=== PATIENT | male | born 1980 | race Caucasian/White ===

== ENCOUNTER 2023-05-19 18:39 | Emergency (ER) | payer MEDICAID, SELFPAY ==
[2023-05-19] VITALS (13 sets, daily range): BP systolic 129–148; BP diastolic 75–91; PULSE 70–82; RESP 14–17; TEMP 36.6–36.8; O2SAT 96–98
--- NOTE | ~2023-05-19 | CT_ITS ---
EXAMINATION: CT abdomen pelvis w con DATE: 05/19/2023 19:46 INDICATION: Abdominal pain with distention TECHNIQUE: Computed tomography (CT) of the abdomen and pelvis was performed with 100 mL Omnipaque-350 intravenous contrast. Automated exposure control and iterative reconstruction technique were employe d. The dose-length product was 1226.14 mGy-cm. COMPARISON: None FINDINGS: Mild discoid atelectasis at the lingula. Heart size is normal. Minimal amount of atherosclerotic epifanio nary artery calcification. No pericardial or pleural effusion. Liver, decompressed gallbladder, splee n, pancreas, bilateral adrenal glands and kidneys are normal. Bowels including the appendix are caryn l. Bladder is normal. No free intraperitoneal gas or fluid. No pathologically enlarged abdominal or p elvic lymphadenopathy. Mild scattered degenerative skeletal changes in the spine and pelvis. IMPRESSION: 1. No acute intra-abdominal/pelvic process. Reviewed, dictated and finalized at location A. OGRAPHIC DOUBLE
--- NOTE | 2023-05-19 18:43 | ECG_ITS ---
Measurements Intervals [place] Rate: 70 P: 42 [place]: 142 QRS: 71 QRSD: 90 T: 39 QT: 390 QTc: 421 Interpretive Statements SINUS RHYTHM BASELINE WANDER- I, III, AVR, AVL, AVF NORMAL ECG NO PREVIOUS ECG AVAILABLE FOR COMPARISON Electronically Signed On 05-19-2023 20:02:34 [employer] OFFICER by Geronimo Anaya D.O.
[2023-05-19 18:57] LABS: Basophils Absolute Auto 0.06 K/mm3 (0.00-0.10); Basophils Percent Auto 0.8 % (0.0-1.0); Eosinophils Absolute Auto 0.33 K/mm3 (0.02-0.50); Eosinophils Percent Auto 4.2 % (1.0-6.0); Hematocrit 42.7 % (40.0-54.0); Hemoglobin 14.4 g/dL (14.0-18.0); Immature Granulocyte Absolute 0.01 K/mm3 (0.00-0.00); Immature Granulocyte Percent A 0.1 % (0.0-0.0); Lymphocytes Absolute Auto 2.64 K/mm3 (1.10-4.50); Lymphocytes Percent Auto 33.6 % (18.0-42.0); Mean Corpuscular HGB Conc 33.7 g/dL (32.0-36.0); Mean Corpuscular Hemoglobin 32.7 pg (27.0-31.0); Mean Platelet Volume 10.2 fl (8.7-11.0); Monocytes Absolute Auto 0.44 K/mm3 (0.10-0.90); Monocytes Percent Auto 5.6 % (2.0-11.0); Neutrophils Absolute Auto 4.4 K/mm3 (1.7-7.2); Neutrophils Percent Auto 55.7 % (50.0-70.0); Platelet Count Result 214 K/mm3 (150-420); Red Cell Distribution Width 12.5 % (11.6-14.4); White Blood Count 7.9 K/mm3 (4.8-10.8)
[2023-05-19] MEDS: SODIUM CHLORIDE 0.9% IV 1,000 ML 999 ML IV CONT (19:00)
--- NOTE | 2023-05-19 19:10 | PC.NURSE ---
BSSR received from FARA Lopez. Patient awake and alert at time of handoff, ivf infusing without difficulty. update provided. patient visitor given warm blanket per request.patient denies current needs.
[2023-05-19 19:13] LABS: Partial Thromboplastin Time 24.8 SEC (23.90-30.70); Prothrombin Time 10.7 Seconds (9.50-12.10)
[2023-05-19 19:21] LABS: Lactic Acid Reflex 1.3 mmol/L (0.4-2.0)
[2023-05-19 19:27] LABS: Alanine Aminotransferase 22 U/L (16-63); Albumin Level 3.9 g/dL (3.4-5.0); Alkaline Phosphatase 82 U/L (46-116); Anion Gap 8 mmol/L (8-16); Aspartate Amino Transferase 13 U/L (15-37); Bilirubin,Total 0.2 mg/dL (0.00-1.00); Blood Urea Nitrogen 12 mg/dL (7-18); Calcium 8.4 mg/dL (8.5-10.1); Carbon Dioxide 29 mmol/L (21-32); Chloride 105 mmol/L (98-108); Estimated Glomerular Filt Rate > 60; Glucose 105 mg/dL (70-99); Lipase 79 U/L (16-77); NT Pro B Type Natriuretic Pept 23 pg/mL (0-125); Osmolality Calculated 293 mOsm/kg (285-295); Potassium 3.8 mmol/L (3.5-5.1); Sodium 142 mmol/L (136-145)
[2023-05-19 19:28] LABS: CRP < 0.5 mg/dL (0.0-0.9); Troponin I < 4.0 ng/L (0.00-60.4)
[2023-05-19 20:22] LABS: Appearance Urine Clear (Clear); Bilirubin Urine Negative (Negative); Blood Urine Trace-Intact (Negative); Color Urine Light Yellow (Yellow); Glucose Urine UA Negative (Negative); Ketones Urine Negative (Negative); Leukocyte Esterase Ur Negative LEU/UL (Negative); Nitrate Urine Negative (Negative); Protein Urine Negative (Negative); Urobilinogen Urine 0.2 mg/dL (0.2-1.0); pH Urine 6.5 (5.0-8.0)
[2023-05-19 20:29] LABS: Add Urine Microscopic? YES; Bacteria Urine None seen /hpf; Squamous Epithelial Cell Urine None seen /hpf (Few); WBC Urine 0-3 /hpf (0-3)
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
== END 2023-05-19 21:10 | disposition home or self-care (01) ==
PROVIDERS: Emergency Provider Emergency Medicine
DX: K52.9 Noninfective gastroenteritis and colitis, unspecified (principal)
CPT/HCPCS: 36415; 74177; 80053; 81001; 83605; 83690; 83880; 84484; 85025; 85610; 85730; 86140; 93005; 96360; 99284; J7030; Q9967

== ENCOUNTER 2023-07-12 16:08 | Emergency (ER) | payer BC, SELFPAY ==
--- NOTE | ~2023-07-12 | CT_ITS ---
EXAMINATION: CT brain wo con DATE: 07/12/2023 17:13 INDICATION: Weakness. Neck pain. TECHNIQUE: Computed tomography (CT) of the head was performed without intravenous contrast. The mA wa s adjusted according to patient size. Iterative reconstruction technique was employed. The dose-lengt h product was 681.00 mGy-cm. COMPARISON: None FINDINGS: There is no intracranial hemorrhage, acute infarction, or abnormal intracranial mass lesion . The ventricles are normal in size. There is mucosal thickening in the paranasal sinuses. The orbits are normal. The mastoid air cells are normal. IMPRESSION: 1. Normal brain. Reviewed, dictated and finalized at location E. NER CCO IMPRESSION: 1. Normal brain.
--- NOTE | ~2023-07-12 | CT_ITS ---
EXAMINATION: CT cervical spine wo con DATE: 07/12/2023 17:14 INDICATION: Neck pain. TECHNIQUE: Computed tomography (CT) of the cervical spine was performed without intravenous contrast. Automated exposure control and iterative reconstruction technique were employed. The dose-length pro duct was 590.84 mGy-cm. COMPARISON: None FINDINGS: There is 4 degrees dextrocurvature of cervical spine. There is mild chronic anterior wedgin g of T2 vertebral body. Intervertebral disc heights are normal. There is multilevel mild facet joint osteoarthritis. There is multilevel mild uncovertebral joint osteoarthritis. On the right, there is m ild neural foraminal stenosis at C3-C4. On the left, there is mild neural foraminal stenosis at C5-C6 . There is mild central canal stenosis at C3-C4. IMPRESSION: 1. No fracture. 2. Mild cervical spondylosis. Reviewed, dictated and finalized at location E. ING HELPER
[2023-07-12 16:10] VITALS: BP 147/80; PULSE 80; RESP 18; TEMP 36.8; O2SAT 97
--- NOTE | 2023-07-12 16:33 | ED.GENADULT ---
HPI - General Adult General Chief complaint: Back Pain/Injury Stated complaint: BACK PAIN, NUMBNESS Time Seen by Provider: 07/12/23 16:17 History of Present Illness HPI narrative: 42yo man with history of years of chronic back pain, no operative interventions or implants, presents with one month of intermittent loss of voluntary muscle control when bending at the waist, causing him to fall over. Patient states he is afraid to bend over to tie his shoes in the past two weeks because this can cause both his arms and his legs to completely stop working, become paralyzed, and he falls over. Asked if he has seen a doctor for this he states he called his physician who ordered him x-rays which he had done at [facility] today, and then waited in their ED and became frustrated with the wait time so came here instead. Feels that, at rest, the pain in his neck is worse than usual and is frequently popping. No saddle anesthesia or stool incontinence but does struggle to start a urine stream and has to push hard to maintain it, which he says is progressively worsening over time. While at rest, no numbness or weakness. Only when flexing the spine forward. Related Data Home Medications Medication Instructions Recorded Confirmed hydrocodone 5 mg-acetaminophen 325 1 tablet PO BID PRN Pain 07/12/23 07/12/23 mg tablet Allergies Allergy/AdvReac Type Severity Reaction Status Date / Time haloperidol [From Haldol] Allergy Anaphylaxis Verified 07/12/23 16:14 Review of Systems Review of Systems: All systems reviewed & are unremarkable except as noted in HPI and below Constitutional: Constitutional: Denies fever(s) Eyes: Eyes: Denies change in vision and Denies photophobia ENT: Denies dysphagia Cardiovascular: Cardiovascular: Denies chest pain Respiratory: Respiratory: Denies dyspnea Gastrointestinal: Gastrointestinal: Denies abdominal pain Musculoskeletal: Musculoskeletal: Reports back pain and Reports arthralgias Neurologic: Denies dizziness, Reports focal weakness, Reports numbness and Reports weakness PMFSH Past Medical History Medical History Patient denies medical problems Exam Const: General: healthy appearing and no acute distress Nutritional Appearance: well nourished HENMT: Head: normal to inspection, no contusions and no hematomas Eyes: Conjunctivae: conjunctivae normal Pupils: Equal, round and reactive pupils present EOM: EOMs intact bilaterally Direct Ophthalmoscopy: no photophobia Resp: Effort & Inspection: normal respiratory effort Cardio: Rate: regular rate GI: Inspection: non-distended Back/Spine/Pelvis: Other: no midline spinal tenderness Skin: General skin exam: normal color, no jaundice and no pallor Neuro: General: patient oriented x3, moves all extremities and no focal motor deficits Other: intact strength and coordination of both arms Extrem: General: no clubbing, cyanosis or edema Course Vital Signs Vital signs: Vital Signs Temperature 36.8 C 07/12/23 16:10 Pulse Rate 80 07/12/23 16:10 Respiratory Rate 18 07/12/23 16:10 Blood Pressure 147/80 H 07/12/23 16:10 Pulse Oximetry 97 07/12/23 16:10 Oxygen Delivery Room Air 07/12/23 16:10 Temperature 36.8 C 07/12/23 16:10 Pulse Rate 80 07/12/23 16:10 Respiratory Rate 18 07/12/23 16:10 Blood Pressure 147/80 H 07/12/23 16:10 Pulse Oximetry 97 07/12/23 16:10 Oxygen Delivery Room Air 07/12/23 16:10 Medical Decision Making MDM Narrative Medical decision making narrative: acute on chronic neck and back pain with position-dependent loss of skeletal muscle control and progressive urinary difficulty DDx central canal stenosis, disc herniation with cervical radiculopathy, cauda equina, neuroforaminal stenosis. Patient states these symptoms are new and progressing. Needs emergent spine evaluation with MRI o
[2023-07-12] MEDS: ACETAMINOPHEN 500 MG TABLET 1000 MG PO (16:36)
[2023-07-12] MEDS: KETOROLAC (*BKC) 60 MG/2 ML VIAL IM (16:37)
[2023-07-12 17:15] VITALS: BP 141/60; PULSE 69; RESP 14; O2SAT 99
== END 2023-07-12 17:55 | disposition home or self-care (01) ==
PROVIDERS: Emergency Provider Emergency Medicine; PCP Physician Assistant
DX: M54.12 Radiculopathy, cervical region (principal); R39.11 Hesitancy of micturition; M62.81 Muscle weakness (generalized); Z79.891 Long term (current) use of opiate analgesic; W19.XXXA Unspecified fall, initial encounter
CPT/HCPCS: 70450; 72125; 96372; 99284; J1885

== ENCOUNTER 2024-04-19 14:29 | Emergency (ER) | payer BC, SELFPAY ==
--- NOTE | ~2024-04-19 | CT_ITS ---
EXAMINATION: CT abdomen pelvis wo con DATE: 04/19/2024 14:55 INDICATION: Abdominal pain. Flank pain. TECHNIQUE: Computed tomography (CT) of the abdomen and pelvis was performed without intravenous contr ast. Automated exposure control and iterative reconstruction technique were employed. The dose-length product was 1011.58 mGy-cm. COMPARISON: CT abdomen and pelvis 05/19/2023 FINDINGS: The visualized portions of the lung bases demonstrate minimal atelectasis on the left. No p leural effusion. The heart size is normal. No pericardial effusion. The liver, gallbladder, spleen, p ancreas, adrenal glands, and left kidney are normal. There is a 1 mm stone in right kidney. There are no dilated loops of bowel. The appendix is normal. There are no pathologically enlarged lymph nodes. There is no free intraperitoneal fluid. There is mild thoracic and lumbar spondylosis. There is a be nign bone island in L1 vertebral body. IMPRESSION: 1. No specific etiology for the patient's symptoms. Reviewed, dictated and finalized at location B.
[2024-04-19 14:31] VITALS: BP 103/63; PULSE 63; RESP 14; TEMP 36.6; O2SAT 99
[2024-04-19] MEDS: KETOROLAC (*BKC) 60 MG/2 ML VIAL IM (14:54)
--- NOTE | 2024-04-19 14:54 | PC.NURSE ---
patient back in room from CT
--- NOTE | 2024-04-19 15:02 | ED.BACK ---
HPI - Back Pain/Injury General Chief Complaint: Back Pain/Injury Stated Complaint: lower back pain Time Seen by Provider: 04/19/24 14:37 Source: patient and family Mode of arrival: ambulatory Limitations: no limitations History of Present Illness HPI Narrative: this is a 43-year-old male that has chronic back pain and follows with Pain Management refused have any kind of injection through Pain Management. Presents with increasing low back pain with no injuries there is no radiation of his pain no saddle paresthesias no fever chills, patient also complaining of right flank and abdominal pain that started 2 to 3 days ago with no nausea vomiting no diarrhea constipation. MD elicited complaint: back pain Pertinent past history: prior back pain Onset (ago): day(s) Timing: constant Severity: severe Pain scale (0-10): 10 Quality: dull and aching Location: lumbar spine Related Data Home Medications Medication Instructions Recorded Confirmed No Home Medications 04/19/24 04/19/24 Allergies Allergy/AdvReac Type Severity Reaction Status Date / Time haloperidol [From Haldol] Allergy Anaphylaxis Verified 04/19/24 14:34 Review of Systems Review of Systems: All systems reviewed & are unremarkable except as noted in HPI and below PMFSH Past Medical History Medical History Chronic back pain Patient denies medical problems Exam Const: General: no acute distress Nutritional Appearance: well nourished Limitations: no limitations Cardio: Rate: regular rate Rhythm: regular rhythm GI: GI Palp: Yes Soft to palpation and Yes Tenderness to palpation present (GI) : General: Yes bladder normal to palpation Urinary Catheter: Urinary Catheter: patent and draining Back/Spine/Pelvis: Back: CVA tenderness Skin: General skin exam: normal color Rashes: no rashes Neuro: General: patient oriented x3, moves all extremities, no meningeal signs and no focal motor deficits Extrem: General: normal to inspection and no clubbing, cyanosis or edema Course Course Emergency Course: patient received a shot of Toradol 60mg IM and CT scan performed and reviewed. Vital Signs Vital signs: Vital Signs Temperature 36.6 C 04/19/24 14:31 Pulse Rate 63 04/19/24 14:31 Respiratory Rate 14 04/19/24 14:31 Blood Pressure 103/63 04/19/24 14:31 Pulse Oximetry 99 04/19/24 14:31 Oxygen Delivery Room Air 04/19/24 14:31 Temperature 36.6 C 04/19/24 14:31 Pulse Rate 63 04/19/24 14:31 Respiratory Rate 14 04/19/24 14:31 Blood Pressure 103/63 04/19/24 14:31 Pulse Oximetry 99 04/19/24 14:31 Oxygen Delivery Room Air 04/19/24 14:31 Critical Care Time Critical Care Time Critical Care Time: No Discharge Plan Discharge Clinical Impression: Lumbar radiculopathy, Abdominal pain Patient Disposition: Home, Self-Care Condition: Stable Instructions: Antibiotic Form Prescriptions: No Action No Home Medications Follow-up/Referrals: Michele,RANGEL Rivas [Primary Care Provider] -
[2024-04-19 15:19] VITALS: BP 103/63; PULSE 63; RESP 14; TEMP 36.6; O2SAT 99
== END 2024-04-19 15:19 | disposition home or self-care (01) ==
PROVIDERS: Emergency Provider Emergency Medicine; PCP Physician Assistant
DX: M54.16 Radiculopathy, lumbar region (principal); R10.9 Unspecified abdominal pain
CPT/HCPCS: 74176; 96372; 99284; J1885